=== PATIENT | female | born 1975 | race Caucasian/White ===

== ENCOUNTER → 2020-07-09 17:11 | Outpatient (CLI) | payer OTHER, SELFPAY ==
[2020-07-09] MEDS: COVID-19 VACC #1, MRNA(MOD) 100 MCG/0.5 ML VIAL IM (17:23)
== END ==
PROVIDERS: Visit Provider Internal Medicine
DX: Z23 Encounter for immunization (principal)
CPT/HCPCS: 0011A; 91301

== ENCOUNTER → 2020-08-06 16:12 | Outpatient (CLI) | payer OTHER, SELFPAY ==
[2020-08-06] MEDS: COVID-19 VACC #2, MRNA(MOD) 100 MCG/0.5 ML VIAL IM (16:20)
== END ==
PROVIDERS: Visit Provider Internal Medicine
DX: Z23 Encounter for immunization (principal)
CPT/HCPCS: 0012A; 91301

== ENCOUNTER → 2022-06-24 09:02 | Outpatient (CLI) | payer OTHER, SELFPAY | PROVIDERS: Visit Provider Nurse Practitioner Family | DX: J02.9 Acute pharyngitis, unspecified (principal) | CPT/HCPCS: 87070; 87147 ==

== ENCOUNTER → 2023-05-17 17:41 | Outpatient (CLI) | payer OTHER, SELFPAY ==
--- NOTE | 2023-05-17 17:44 | DI.MG.S_ITS ---
BILATERAL DIGITAL SCREENING MAMMOGRAM 3D/2D WITH CAD: 05/17/2023 CLINICAL: Baseline exam. Routine screening. No prior exams were available for comparison. Both breasts are heterogeneously dense, which may obscure small masses (category c / 51-75% glandular tissue). Current study was also evaluated with a Computer Aided Detection (CAD) system. There is a cluster of asymmetries in the left breast middle depth medial region seen on the craniocaudal view only. No other significant masses, calcifications, or other findings are seen in either breast. IMPRESSION: INCOMPLETE: NEEDS ADDITIONAL IMAGING EVALUATION The cluster of asymmetries in the left breast is indeterminate. Additional views with possible ultrasound are recommended. Based on the Tyrer Cuzick model (a risk assessment model) the patient's lifetime risk is 9.7% and her 10 year risk is 1.9%. According to the ACR, ACS, and NCCN guidelines, an annual breast MRI exam along with mammogram is recommended if the patient's lifetime risk is 20% or greater. This exam was interpreted at Station ID: [id number]. NOTE: For mammograms, a report in lay terms will be sent to the patient. Approximately 15% of breast malignancies will not be visualized mammographically. In the management of a palpable breast mass, a negative mammogram must not discourage biopsy of a clinically suspicious lesion. Electronically Signed By: Dick Mederos M.D. lc/:05/18/2023 12:38:14 letter sent: Additional Imaging Needed ACR BI-RADS Category 0: Incomplete 3340F
== END ==
LOC: MAMMO 17:42
PROVIDERS: PCP Student in an Organized Health Care Education/Training Program; Referring Provider Student in an Organized Health Care Education/Training Program; Visit Provider Student in an Organized Health Care Education/Training Program
DX: Z12.31 Encounter for screening mammogram for malignant neoplasm of breast (principal); R92.333 Mammographic heterogeneous density, bilateral breasts
CPT/HCPCS: 77063; 77067

== ENCOUNTER → 2023-05-18 09:03 | Outpatient (CLI) | payer OTHER, SELFPAY ==
[2023-05-18 10:12] LABS: Add Manual Diff / Slide Review NO; Basophils Absolute Auto 0 /uL (0-100); Basophils Percent Auto 0.7 % (0-2); Eosinophils Absolute Auto 600 /uL (0-450); Eosinophils Percent Auto 10.6 % (2-4); Hematocrit 31.1 % (36-46); Hemoglobin 10.1 g/dL (12.0-16.0); Lymphocytes Absolute Auto 2200 /uL (1100-4500); Lymphocytes Percent Auto 39.3 % (25-40); Mean Corpuscular HGB Conc 32.3 % (30-36); Mean Corpuscular Hemoglobin 25.6 PG (26-34); Mean Corpuscular Volume 79.1 fL (80-100); Monocytes Absolute Auto 500 /uL (0-900); Monocytes Percent Auto 8.6 % (3-14); Neutrophils Absolute Auto 2300 /uL (1500-7000); Neutrophils Percent Auto 40.8 % (50-75); Platelet Count 352 X10^3/uL (150-400); Red Blood Cell Count 3.94 X10^6/uL (4.0-5.2); Red Cell Distribution Width 15.4 % (11.6-14.8); White Blood Cell Count 5.7 X10^3/uL (4.5-11.0)
[2023-05-18 10:18] LABS: Hemoglobin A1C% w Est Avg Glu 5.1 % (4.0-6.0)
[2023-05-18 10:29] LABS: Alanine Aminotransferase 12 IU/L (<35); Albumin 3.9 g/dL (3.5-5.0); Albumin Globulin Ratio 1.3 (1.0-2.8); Alkaline Phosphatase 50 U/L (38-126); Aspartate Aminotransferase 15 IU/L (14-36); BUN Creatinine Ratio 8.1 (6-22); Bilirubin Total 0.5 mg/dL (0.2-1.3); Blood Urea Nitrogen 5 mg/dL (7-17); Calcium 9.1 mg/dL (8.4-10.2); Carbon Dioxide 27 mmol/L (22-32); Chloride 104 mmol/L (98-107); Cholesterol 141 mg/dL (140-199); Estimated Glomerular Filt Rate > 60 mL/min (>60); Globulin 3.1 g/dL (1.7-4.1); Glucose 91 mg/dL (70-100); HDL Cholesterol 39 mg/dL (40-60); HEMOLYSIS < 15 (0-50); LDL Cholesterol Calculated 94 mg/dL (<100); Potassium 4.1 mmol/L (3.4-5.1); Sodium 138 mmol/L (137-145); Triglycerides 40 mg/dL (35-150)
[2023-05-18 11:00] LABS: TSH w/ Reflex to FT4 0.67 uIU/mL (0.47-4.68)
== END ==
PROVIDERS: PCP Student in an Organized Health Care Education/Training Program; Referring Provider Student in an Organized Health Care Education/Training Program; Visit Provider Student in an Organized Health Care Education/Training Program
DX: R53.83 Other fatigue (principal); Z13.1 Encounter for screening for diabetes mellitus; Z13.220 Encounter for screening for lipoid disorders
CPT/HCPCS: 36415; 80053; 80061; 83036; 84443; 85025

== ENCOUNTER → 2023-05-19 09:16 | Outpatient (CLI) | payer OTHER, SELFPAY ==
[2023-05-22 11:25] LABS: Fecal Immunochemical Test Negative (Negative)
== END ==
PROVIDERS: PCP Student in an Organized Health Care Education/Training Program; Visit Provider Student in an Organized Health Care Education/Training Program
DX: Z12.11 Encounter for screening for malignant neoplasm of colon (principal)
CPT/HCPCS: 82274

== ENCOUNTER → 2023-06-13 08:42 | Outpatient (CLI) | payer OTHER, SELFPAY ==
--- NOTE | 2023-06-13 | DI.MG.S_ITS ---
UNILATERAL LEFT DIGITAL DIAGNOSTIC MAMMOGRAM 3D/2D WITH ADDITIONAL VIEWS: 06/13/2023 CLINICAL: Additional evaluation requested from prior study. Comparison is made to exam dated: 05/17/2023 mammogram - [facility]. The left breast is heterogeneously dense, which may obscure small masses (category c / 51-75% glandular tissue). There is an asymmetry in the left breast anterior depth inner region seen on the craniocaudal view only. This corresponds to finding seen on recent baseline screening mammogram. No other significant masses or calcifications are seen in the breast. IMPRESSION: INCOMPLETE: NEEDS ADDITIONAL IMAGING EVALUATION Left breast asymmetry in the inner region anterior depth on CC view may represent fibroglandular tissue. An ultrasound is recommended for further evaluation and is scheduled to immediately follow this examination. Based on the Tyrer Cuzick model (a risk assessment model) the patient's lifetime risk is 10.4% and her 10 year risk is 2.0%. According to the ACR, ACS, and NCCN guidelines, an annual breast MRI exam along with mammogram is recommended if the patient's lifetime risk is 20% or greater. This exam was interpreted at Station ID: [id number]. NOTE: For mammograms, a report in lay terms will be sent to the patient. Approximately 15% of breast malignancies will not be visualized mammographically. In the management of a palpable breast mass, a negative mammogram must not discourage biopsy of a clinically suspicious lesion. Electronically Signed By: Agueda Singh M.D., PH.D eb/:06/13/2023 13:20:31 ACR BI-RADS Category 0: Incomplete 3340F
--- NOTE | 2023-06-13 08:44 | DI.US.S_ITS ---
LIMITED ULTRASOUND OF LEFT BREAST: 06/13/2023 CLINICAL: Patient returns today to evaluate a focal asymmetry in the left breast. Comparison is made to exams dated: 06/13/2023 mammogram and 05/17/2023 mammogram - [facility]. Color flow and real-time ultrasound of the left breast 5 o'clock region were performed. No sonographic correlate for mammogram finding. Handkerchief Maker image is taken at 5 o'clock, 3 cm from the nipple. IMPRESSION: PROBABLY BENIGN Left breast asymmetry in the inner region anterior depth initially identified on baseline screening mammogram without ultrasound correlate. Finding may represent fibroglandular tissue and is probably benign. Recommend follow-up left breast mammogram in 6 months to demonstrate stability. Findings and recommendations were conveyed to the patient during today's evaluation. This exam was interpreted at Station ID: [id number]. Electronically Signed By: Agueda Singh M.D., PH.D eb/:06/13/2023 13:19:42 letter sent: Followup Recommended Ultrasound BI-RADS: 3 Probably benign
== END ==
LOC: MAMMO 08:43
PROVIDERS: PCP Student in an Organized Health Care Education/Training Program; Referring Provider Student in an Organized Health Care Education/Training Program; Visit Provider Student in an Organized Health Care Education/Training Program
DX: R92.8 Other abnormal and inconclusive findings on diagnostic imaging of breast (principal); R92.332 Mammographic heterogeneous density, left breast
CPT/HCPCS: 76642; 77065; G0279

== ENCOUNTER → 2024-05-28 15:27 | Outpatient (CLI) | payer OTHER, SELFPAY ==
[2024-05-28 16:56] LABS: Add Manual Diff / Slide Review NO; Basophils Absolute Auto 0 /uL (0-100); Basophils Percent Auto 0.6 % (0-2); Eosinophils Absolute Auto 200 /uL (0-450); Eosinophils Percent Auto 2.2 % (2-4); Hematocrit 34.9 % (36-46); Hemoglobin 11.8 g/dL (12.0-16.0); Lymphocytes Absolute Auto 3000 /uL (1100-4500); Lymphocytes Percent Auto 37.7 % (25-40); Mean Corpuscular HGB Conc 33.7 % (30-36); Mean Corpuscular Hemoglobin 31.1 PG (26-34); Mean Corpuscular Volume 92.3 fL (80-100); Monocytes Absolute Auto 500 /uL (0-900); Monocytes Percent Auto 6.5 % (3-14); Neutrophils Absolute Auto 4200 /uL (1500-7000); Platelet Count 323 X10^3/uL (150-400); Red Blood Cell Count 3.78 X10^6/uL (4.0-5.2); Red Cell Distribution Width 14.3 % (11.6-14.8)
[2024-05-28 17:18] LABS: HEMOLYSIS < 15 (0-50); Iron 170 ug/dL (37-170)
[2024-05-28 17:29] LABS: Percent Iron Saturation 50 % (15-50); Total Iron Binding Capacity 339 ug/dL (265-497); Transferrin 305 mg/dL (206-381)
[2024-05-28 17:52] LABS: Ferritin 8 ng/mL (6-137)
== END ==
PROVIDERS: PCP Student in an Organized Health Care Education/Training Program; Referring Provider Student in an Organized Health Care Education/Training Program; Visit Provider Student in an Organized Health Care Education/Training Program
DX: N92.0 Excessive and frequent menstruation with regular cycle (principal)
CPT/HCPCS: 36415; 82728; 83540; 83550; 85025

== ENCOUNTER → 2024-06-03 11:58 | Outpatient (CLI) | payer OTHER, SELFPAY ==
--- NOTE | 2024-06-03 12:00 | DI.US.S_ITS ---
PROCEDURE: US PELVIC COMPLETE INDICATIONS: heavy menstrual periods TECHNIQUE: Real-time scanning was performed of the pelvic organs, with image documentation. Additional endovaginal scanning was necessary due to incomplete visualization of the adnexal and endometrial structures by transabdominal scanning. COMPARISON: None. FINDINGS: Uterus: Uterus is anteverted and enlarged at 16.1 x 9.1 x 9.3 cm. The myometrium is diffusely heterogeneous secondary to several myometrial masses obscuring the endometrium. Left anterior mass measures 5.1 cm. Right posterior mass measures 5.1 cm. Left fundal mass measures 2.8 cm. Uterine body was not well seen by transvaginal imaging. The cervix appears normal Ovaries: Neither ovary was well seen. No suspicious adnexal masses. Other: No pathologic free abdominal or pelvic fluid. IMPRESSION: Enlarged, fibroid uterus with obscuration of the endometrial stripe. Consider pelvic MRI if further imaging is needed. We strive to produce accurate, complete, and clear reports of imaging services. To assist us in improving patient care, this report was composed using standard report templates and voice recognition software. Therefore, it may contain abnormal punctuation, insertions and/or omissions. Occasional wrong-word or sound-alike substitutions may occur. Though we review the report and make efforts to correct it, we do recommend that the report be read carefully in proper context to recognize any text inaccuracies. Dictated by: Beryl Douglas M.D. on 06/04/2024 at 10:27 Approved by: Beryl Douglas M.D. on 06/04/2024 at 10:29
--- NOTE | 2024-06-03 12:00 | DI.MG.S_ITS ---
BILATERAL DIGITAL DIAGNOSTIC MAMMOGRAM 3D/2D: 06/03/2024 CLINICAL: Late short term follow up, due bilateral. Comparison is made to exams dated: 06/13/2023 mammogram and 05/17/2023 mammogram - [facility]. The breasts are heterogeneously dense, which may obscure small masses (category c / 51-75% glandular tissue). The previously described asymmetry in the left breast anterior depth central to the nipple seen on the craniocaudal view only. This is not seen in additional views. This is not significantly changed and was not seen on the prior ultrasound. No other significant masses, calcifications, or other findings are seen in either breast. IMPRESSION: PROBABLY BENIGN The asymmetry in the left breast resembles fibroglandular tissue and is probably benign. A follow-up bilateral mammogram with possible left ultrasound in 12 months is recommended to document jail stability. Findings and recommendations were conveyed to the patient during today's evaluation. Based on the Tyrer Cuzick model (a risk assessment model) the patient's lifetime risk is 10.4% and her 10 year risk is 2.1%. According to the ACR, ACS, and NCCN guidelines, an annual breast MRI exam along with mammogram is recommended if the patient's lifetime risk is 20% or greater. This exam was interpreted at Station ID: [id number]. NOTE: For mammograms, a report in lay terms will be sent to the patient. Approximately 15% of breast malignancies will not be visualized mammographically. In the management of a palpable breast mass, a negative mammogram must not discourage biopsy of a clinically suspicious lesion. Electronically Signed By: Mikel Holman M.D. at/:06/03/2024 12:56:53 letter sent: Followup Recommended ACR BI-RADS Category 3: Probably Benign
[2024-06-05 12:36] LABS: Fecal Immunochemical Test Negative (Negative)
== END ==
PROVIDERS: PCP Student in an Organized Health Care Education/Training Program; Referring Provider Student in an Organized Health Care Education/Training Program; Visit Provider Student in an Organized Health Care Education/Training Program
DX: R92.2 Inconclusive mammogram (principal); R92.333 Mammographic heterogeneous density, bilateral breasts; N64.89 Other specified disorders of breast; N92.0 Excessive and frequent menstruation with regular cycle; N85.2 Hypertrophy of uterus; N85.9 Noninflammatory disorder of uterus, unspecified; Z12.11 Encounter for screening for malignant neoplasm of colon
CPT/HCPCS: 76856; 77066; 82274; G0279

== ENCOUNTER → 2024-06-22 08:00 | Outpatient (CLI) | payer OTHER, SELFPAY | PROVIDERS: PCP Student in an Organized Health Care Education/Training Program; Visit Provider Physician Assistant Surgical | DX: J02.9 Acute pharyngitis, unspecified (principal) | CPT/HCPCS: 87070; 87077; 87147 ==

== ENCOUNTER 2024-09-12 06:27 | Day surgery (SDC) | payer OTHER, SELFPAY ==
[2024-09-03 10:48] VITALS: BMI 32.3
[2024-09-12] VITALS (13 sets, daily range): BP systolic 90–124; BP diastolic 54–74; PULSE 75–99; RESP 11–18; TEMP 36.2–37.1; O2SAT 94–100; BMI 31.6
--- NOTE | 2024-09-12 | PATH_ITS ---
[facility] Accession Number: [id number] No. of containers..01 Tissue . 01 Material submitted: . uterus - UTERUS, CERVIX, BILATERAL FALLOPIAN TUBES . 01 Diagnosis: UTERUS, CERVIX, AND BILATERAL FALLOPIAN TUBES, HYSTERECTOMY AND BILATERAL SALPINGECTOMY: Unremarkable cervix; no dysplasia. Proliferative endometrium; no endometrioid intraepithelial neoplasia. Benign leiomyomata. Adenomyosis. Complete cross-section of bilateral fimbriated fallopian tubes with no significant diagnostic alterations. No malignancy. [facility] 09/18/2024 1706 Local . 01 Electronically signed: . Xenia Espinoza MD, Pathologist NPI- [id number] . 01 Gross description: . Received in formalin with two identifiers and uterus, cervix, bilateral fallopian tubes, is a fragmented uterus (558 grams and aggregating to 17.5 x 11.6 x 9.0 cm) with a detached cervical stump (4.4 x 2.2 cm and 3.2 cm in length), attached fimbriated fallopian tube (5.8 x 0.9 cm), and detached fimbriated fallopian tube (5.9 x 0.8 cm) with no additional adnexa. . The ectocervix is talamantes to erythematous and wrinkled with a long purple suture with no designation per the requisition. The cervical margins are inked blue. The serosa is talamantes and wrinkled with no evidence of hemorrhage or adhesion identified. The presumed endometrium is talamantes and partially denuded measuring up to 0.1 cm thick. The endocervical canal has talamantes herringbone mucosa and measures 3.7 cm in length. Several smooth-walled simple cysts are identified up to 1.2 cm in greatest dimension filled with clear viscous material. The myometrium is talamantes and trabecular with numerous, well-circumscribed, white, whorled nodules ranging from 0.3 to 5.6 cm in greatest dimension. No hemorrhage or necrosis is identified. . Both tubes have smooth, violaceous smooth serosa with cysts up to 0.1 cm in greatest dimension filled with clear serous fluid. The lumens are stellate and unremarkable. Device Test Engineer sections are submitted as follows: . A1-A2: Device Test Engineer cervix. A3: Endometrium. A4: Serosa. A5-A8: Device Test Engineer well-circumscribed nodules. A9: Attached fallopian tube to include one-half of bisected fimbria and cross-sections. A10: Detached fallopian tube to include one-half of bisected fimbria and cross-section. ([id number]) /MRV 09/13/2024 [facility] Local . 01 Pathologist provided ICD-10: D25.9, N80.03 . 01 CPT . 785875 Specimen Comment: A courtesy copy of this report has been sent to [facility] Pathology Performed at: [address] [address], [place], [place] [id number] MD Tyrel Ellison MD Phone: [phone]
[2024-09-12 06:58] LABS: Add Manual Diff / Slide Review NO; Basophils Absolute Auto 0 /uL (0-100); Basophils Percent Auto 0.7 % (0-2); Eosinophils Absolute Auto 100 /uL (0-450); Eosinophils Percent Auto 2.2 % (2-4); Hematocrit 37.5 % (36-46); Hemoglobin 12.6 g/dL (12.0-16.0); Lymphocytes Absolute Auto 2500 /uL (1100-4500); Lymphocytes Percent Auto 37.9 % (25-40); Mean Corpuscular HGB Conc 33.5 % (30-36); Mean Corpuscular Volume 92.5 fL (80-100); Monocytes Absolute Auto 600 /uL (0-900); Monocytes Percent Auto 8.4 % (3-14); Neutrophils Absolute Auto 3400 /uL (1500-7000); Neutrophils Percent Auto 50.8 % (50-75); Platelet Count 303 X10^3/uL (150-400); Red Blood Cell Count 4.06 X10^6/uL (4.0-5.2); Red Cell Distribution Width 13.8 % (11.6-14.8); White Blood Cell Count 6.6 X10^3/uL (4.5-11.0)
[2024-09-12] MEDS: LACTATED RINGERS 1,000 ML 42 ML IV ×2 (07:05→09:01)
[2024-09-12] MEDS: ACETAMINOPHEN IV 1,000 MG/100 ML VIAL 400 MG IV (07:27)
[2024-09-12] MEDS: SCOPOLAMINE 1 PATCH TOP (07:28)
--- NOTE | 2024-09-12 07:31 | PM.PREOP ---
Pre-operative Note Interval Note History & Physical reviewed/Exam performed by Physician: Yes Changes to H&P: No H&P completed within 30 days and has changed as indicated here:: see H&P from 08/30/24; negative endometrial biopsy from that visit
[2024-09-12] MEDS: CEFAZOLIN 2 GM/100 ML PREMIX 100 ML IV (08:00)
--- NOTE | 2024-09-12 08:13 | SUR.OPER ---
Lithotomy on padded Davinci OR bed. [place] Pad Positioner under torso. Head on pillow, arms padded and tucked at sides. Legs secured in padded yellow fins stirrups. prone pillow in place, shoulder strap on.
--- NOTE | 2024-09-12 09:14 | SUR.OPER ---
0914 updated on robot start time.
[2024-09-12] MEDS: BUPIVACAINE 0.25% (PF) VIAL 30 ML INJ (10:05)
--- NOTE | 2024-09-12 11:49 | P.OP_ITS ---
Operative Date/Time/Diagnoses Date of procedure: 09/12/24 Time of procedure: 08:15 Pre-op diagnosis: Abnormal uterine bleeding Uterine leiomyomata Post-op diagnosis: same Procedure & Clinicians Procedure: Robotic-assisted total laparoscopic hysterectomy Bilateral salpingectomy Same procedure as scheduled: Yes Indications: 49-year-old female with AUB-L, counseled regarding management options, and patient desired to proceed with definitive management with the above procedures. Surgeon: Sarah Salas Anesthesia Type: General Operative Notes Findings: 16 week sized multi-fibroid uterus, normal-appearing bilateral fallopian tubes and bilateral ovaries. Closure Type: primary Specimen(s): other (Uterus, cervix, bilateral fallopian tubes) Applied: catheter (Removed at the end of the case) Estimated Blood Loss (mL): 200 Blood products transfused: none Procedure in detail: The risks, benefits, indications and alternatives of the procedure were reviewed with the patient and informed consent was obtained. The pt was taken to the operating room where general anesthesia was obtained without difficulty. The pt was then placed in the low lithotomy position using Gavino Stirrups and arms were tucked with padding. Sequential compression devices were placed bilaterally for VTE prophylaxis. She was then prepped and draped in the sterile fashion and a Peter catheter was placed. She received 2g Ancef for surgical prophylaxis. A V-care uterine manipulator was placed through the cervix into the uterus for uterine manipulation. Attention was then turned to the patient?s abdomen were an 8mm skin incision was made 2cm superior to the umbilicus after injecting 0.25% Marcaine. An 8mm trocar and sleeve were then carefully introduced into the peritoneal cavity under direct visualization at a 90-degree angle while tenting up the abdominal wall. Intra-peritoneal placement was unable to be confirmed under direct visualization, thus a Veress needle was then used to obtain pneumoperitoneum. A pneumoperitoneum was obtained with several liters of CO2 gas, maximum pressure of 15 mmHg. The 8 mm trocar and sleeve were then introduced into the peritoneal cavity under direct visualization. Upon entry into the peritoneal cavity, structures immediately below the incision were inspected and found to be free of injury. A survey of the patient's abdomen and pelvis was notable for the above findings. Four additional 8mm port sites were placed under direct laparoscopic guidance horizontally across her abdomen in line with the midline port. The Runtastici 5 robot was then docked, and instruments were introduced into the abdominal cavity under direct visualization. Control of the instruments was then turned over to the console. The vessel sealer was then used to clamp, cut, and ligate the left fallopian tube from the mesosalpinx. The utero-ovarian and round ligaments were then clamped, cut, and ligated. The anterior broad ligament was then incised along the bladder reflection and the bladder was dissected off the lower uterine segment until endopelvic fascia was visualized. The uterine artery was then identified, skeletonized, and ligated on the left. The uterosacral ligament and cardinal ligament were transected on the left. Attention was then directed to the right side, where the same procedure was done to clamp, cut, and ligate the right fallopian tube, and right side of the uterus. The anterior colpotomy was then made using the monopolar scissors and continued circumferentially inferior to the cervix using the colpotomy ring as a guide. The entire cervix and uterus was then successfully amputated. Attention was then directed vaginally, where the uterus was morcellated sharply and delivered through the vagina. The 0 Stratafix suture was then introduced into the abdominal cavity. The vaginal cuff was then closed robotically with the barbed suture in a running fashion. The suture needle was removed via the lateral port under direct visualization. The pelvis was then irrigated and suctioned, and excellent hemostasis was noted. The pneumoperitoneum was then released, the robot was undocked, and the ports were removed. The skin incisions were then reapproximated using 4-0 monocryl suture in a subcuticular fashion and covered with Dermabond. A vaginal exam was done, and showed a 2 cm laceration on the right vaginal sidewall, and this was repaired with an 0 Vicryl suture in a running fashion. Minimal vaginal bleeding was noted after this was completed. The Peter catheter was then removed. At the completion of the case the sponge and needle counts were correct x 2, and all instruments were confirmed to be removed from the vagina. The patient was taken to the PACU in stable condition. Complications: none Post-operative Condition: stable Disposition: PACU Plan for aftercare: Discharge to home this afternoon versus tomorrow morning.
[2024-09-12] MEDS: ONDANSETRON 4 MG/2 ML INJ IV (12:03)
[2024-09-12] MEDS: HYDROMORPHONE 1 MG INJ IV (12:03)
[2024-09-12] MEDS: hydrOXYzine 50 MG/ML INJ 25 MG IM (12:03)
[2024-09-12] MEDS: KETOROLAC 30 MG/ML VIAL IV ×2 (12:10→18:33)
--- NOTE | 2024-09-12 13:39 | PC.NURSE ---
Addendum entered by Erin Dejesus R.N. 09/12/24 18:50: patient encouraged to try to void at approximately 1730. She is able to void x1. PVR 7-10 cc. Patient requests to remain overnight. MD Salas notified and new orders processed. She reports pain crampy at 5/10. She is able to ambulate in the room with SBA. She reports feeling woozy but steady. Original Note: Patient arrives at approximately 1250 from PACU viab bed. She awakens and is A&OX4, VSS weaned to RA. She denies needing pain medication, reports she feels very sleepy. Physical assesment completed, POST-OP VS per protocol, continuous pulse ox, IVF, Call light in reach, SCD's on, frequent rounding. Abdominal incisions c/d/i, VALENTIN with derma gongora.
[2024-09-12] MEDS: OXYCODONE IR 5 MG TABLET PO ×2 (14:37→21:41)
[2024-09-12] MEDS: ACETAMINOPHEN 325 MG TABLET 650 MG PO (18:36)
[2024-09-12] MEDS: DOCUSATE 100 MG CAPSULE 200 MG PO (21:42)
[2024-09-13] MEDS: SODIUM CHLORIDE 0.9% FLUSH 10 ML IV (00:01)
[2024-09-13] MEDS: ACETAMINOPHEN 325 MG TABLET 650 MG PO ×2 (06:18)
[2024-09-13] MEDS: KETOROLAC 30 MG/ML VIAL IV ×2 (06:18)
[2024-09-13 08:00] VITALS: BP 90/64; PULSE 77; RESP 16; TEMP 36.6; O2SAT 98
--- NOTE | 2024-09-13 08:55 | CM.DANOTE ---
Initial DCP Assessment Note Pt is a 49 yo female, resident of [place], now POD#1 from total laparoscopic hysterectomy and Bilateral salpingectomy PCP: Dr Greenfield Payer: lisa Reviewed chart. Patient lives independently with spouse in [place] and has planned for return home w/sp to assist as needed throughout her recovery. No barriers identified at this time to patient's safe discharge home w/family to assist; close outpatient f/u recommended. CM team will plan to follow clinical course closely in case any DC needs or concerns arise. SUNITA Rooney Discharge Planning/Care Management CM Discharge Assessment Start: 09/12/24 13:39 Freq: Status: Active Protocol: Document 09/13/24 08:51 JOSIE (Rec: 09/13/24 08:55 JOSIE [id number]) Discharge Planning Assessment Assigned Unit Manager Rn SUNITA Wilkerson DPOA/Assigned Designee Name zaida Hernadez Contact Information [phone] Advance Directives? No History Provided By Patient,Medical Record Has Patient been admitted in last 30 No days? Prior Living Arrangements House Household Members spouse Type of transportation used prior to Drives own vehicle admit Independent with ADL's Yes Is patient alert and oriented? Yes Barriers to Discharge No Comment Home w/sp to assist as needed. Discharge Plan Home Transportation Arrangement Family Referrals Initiated None needed
[2024-09-13] MEDS: DOCUSATE 100 MG CAPSULE 200 MG PO (08:59)
--- NOTE | 2024-09-13 09:31 | PC.NURSE ---
Patient is alert and oriented x4. She has been taking tylenol and toradol for discomfort. She is tolerating her pain at this time, will see if she needs something more for discomfort shortly. She has 6 lapsites that are all open to air and durmobonded. Patient has voided and she is talking to now.
--- NOTE | 2024-09-16 14:41 | P.DS_ITS ---
History of Present Illness History of Present Illness Date Patient Seen: 09/13/24 Time Patient Seen: 09:45 Chief complaint: Lap Total Hysterectomy Robot Assisted Narrative: Patient is a 49-year-old 3 para 3 who presented on 09/12 2024 for a scheduled robotic total laparoscopic hysterectomy with bilateral salpingectomy. She underwent this procedure without complication. Discharge Providers Provider Discharge Date: 09/13/24 Primary care physician: Ranjana Greenfield MD Discharge provider: Dorcas Álvarez MD Summary Hospital Course Discharge Diagnosis: Menorrhagia Enlarged fibroid uterus Robotic total laparoscopic hysterectomy with bilateral salpingectomy Hospital Course: Patient is a 49-year-old 3 para 3 who presented on September 12, 2024 for a scheduled robotic laparoscopic total hysterectomy and bilateral salpingectomy. She underwent this procedure without complication. Her catheter was removed and she was able to void without the catheter. She is tolerating a diet. She is ambulating without assistance. Her pain is well controlled with oral medications. No nausea or vomiting. Minimal vaginal bleeding. Status at Discharge Cognitive/behavioral status at discharge: oriented Functional status at discharge: independent ambulation Overall status at discharge: patient is progressing back to baseline Time Spent with Patient Time spent: Less than 30 minutes Exam Vital Signs (past 8 hours): Oxygen Delivery Method Nasal Cannula Oxygen Flow Rate 0 Narrative Exam Narrative: Generally: Patient is sitting up in bed, no acute distress Lungs: Clear to auscultation bilaterally Cardiovascular: Regular rate and rhythm Abdomen: 5 laparoscopy incisions that are well approximated with surgical glue. Extremities: No edema, negative Homans Objective Labs 09/12/24 06:45 [facility] Medical History BCC (basal cell carcinoma) (2017) GERD (gastroesophageal reflux disease) Obesity (BMI 30.0-34.9) Surgical History (Updated 07/16/24 @ 20:30 by Sarah Salas DO) [place] teeth removed (09/22/90) Family History Father Prostate cancer Social History household members: spouse Smoking Status: Never smoker Discharge Assessment & Plan Assessment and Plan Assessment: Postop day # 1 status post robotic laparoscopic total hysterectomy and bilateral salpingectomy Patient doing very well Plan of Treatment: Discharge to home Follow-up in [address] Salas for telehealth postop visit Patient is to call with fever, chills, redness or drainage around the incisions, or bleeding vaginally more than spotting to light Discharge Plan Discharge Plan Patient Disposition: Home Provider Discharge Comment: Take ibuprofen 600 mg every 6 hours and acetaminophen 650 mg every 6 hours for pain. Use oxycodone 5 mg every 4-6 hours as needed for severe pain. Nothing more than 8 lb of lifting for the first week Avoid lifting greater than 20 lb for at least 4 weeks. Avoid placing anything in the vagina until her 6 week postoperative visit. Discharge orders & Medications Discharge Orders: Discharge (Order); Ordered 09/13/24 Ordered By: Dorcas Álvarez Prescriptions: New oxycodone 5 mg Tablet 5 mg PO Q4HR PRN (Reason: Pain, Moderate (4-6)) Qty: 10 0RF No Action No Known Home Medications Follow up/Referrals: Sarah Salas DO [Physician] - (2 wk post op visit with Dr. Salas on 09/30/24 at 2pm for Telehealth visit 6 wk post op visit with Dr. Salas on 11/01/24 at 230pm for final post op check) Diet/Activity/Treatments Diet: Diet as Tolerated Activity: As tolerated No heavy lifting Nothing in the vagina and till after final postop check Skin/Wound/Dressing Care Skin care: You may shower normally. Report to your healthcare provider any signs of infection, such as:: chills, fever, increased pain, unusual drainage and unusual redness Dressing: The surgical glue on your incisions will come off in about 1 week. Do not remove the surgical glue Visit Report/Discharge Packet Instructions: DI for Hysterectomy, Hysterectomy -- Laparoscopic Surgery, DI for Prescription Opioid Use, Oxycodone Stand Alone Forms: Patient Portal/API, Surgery Discharge Discharge Data Primary Care Provider: Ranjana Greenfield Attending Provider: Sarah Salas PROFEE Charge Codes Discharge inpatient/observation: [id number]
== END 2024-09-13 10:53 | disposition home or self-care (01) ==
LOC: OR 06:27 → AC 12:41
PROVIDERS: PCP Student in an Organized Health Care Education/Training Program; Referring Provider Student in an Organized Health Care Education/Training Program; Visit Provider Student in an Organized Health Care Education/Training Program
PROC: 0UT94ZZ Resection of Uterus, Percutaneous Endoscopic Approach (ICD-10-PCS; CPT 58571; principal; 2024-09-12 07:45)
DX: N93.9 Abnormal uterine and vaginal bleeding, unspecified (principal); D25.9 Leiomyoma of uterus, unspecified; N80.03 Adenomyosis of the uterus
CPT/HCPCS: 58571; S2900; 36415; 85025; 86850; 86900; 86901; J0131; J0330; J0690; J1100; J1171; J1885; J2250; J2405; J2704; J3010; J3410; J3490